=== PATIENT | male | born 1975 | race Caucasian/White ===

== ENCOUNTER 2019-07-23 21:29 | Emergency (ER) | payer SELFPAY ==
[~2019-07-23] VITALS: Ht 180.3 cm; Wt 70.3 kg
[2019-07-23 21:33] VITALS: Ht 180.3 cm; Wt 70.3 kg
[2019-07-23] MEDS ORDERED: HYDROCODONE-A1 UDTA2 PO (23:31)
[2019-07-23 23:58] VITALS: BP 132/80
== END 2019-07-23 23:58 | disposition home or self-care (01) ==
LOC: D.ER 21:29
DX: S62.300A Unspecified fracture of second metacarpal bone, right hand, initial encounter for closed fracture (principal); V49.9XXA Car occupant (driver) (passenger) injured in unspecified traffic accident, initial encounter; M79.675 Pain in left toe(s); F17.200 Nicotine dependence, unspecified, uncomplicated